=== PATIENT | male | born 1945 | race Caucasian/White ===

== ENCOUNTER 2016-10-21 02:25 | Emergency (ER) | payer MEDICARE, OTHER ==
--- NOTE | ~2016-10-21 | CN ---
Consultation Report [facility] [address] [place]. [address] NAME: KEO ZHONG JR : 41 STATUS : [facility] PAT#: [id number] AGE: 71 ADM/REG DATE : 10/21/16 MR#: [id number] REPORT SERV DATE: 10/21/16 DICTATED BY: LUCILLE CARBAJAL DATE: 10/21/16 REPORT STATUS : Draft TRANSCRIBED BY: MODL DATE: 10/21/16 CONSULTATION DATE OF CONSULTATION: 10/21/2016 REASON FOR CONSULTATION: Urinary retention and urinary tract infection. HISTORY OF PRESENT ILLNESS: Mr. Zhong is a 71-year-old male with a history of urinary incontinence following a transurethral resection of the prostate. This was managed with an artificial urinary sphincter that was placed in 2006. He has been using this since then without any complications. However, recently, he describes difficulty using the device and "having to really prime it to get it to work." He additionally has a history of urinary retention, which was treated with an InterStim placement at [place]. It is unclear the etiology of his urinary retention. Regardless, the InterStim did not work. He presented to the ER tonight with abdominal pain and dysuria. He was found to have urinary retention. The ER staff was given instructions on how to deactivate the sphincter, the sphincter was deactivated and a small catheter was placed into his bladder, draining clear urine. The urinalysis was concerning for infection. He has no fevers or chills. He has no nausea or vomiting. He does not describe any sort of erythema or pain of his genitalia. He has not had any hematuria. I have been asked to consult regarding these findings. PAST MEDICAL HISTORY: Notable for COPD, on oxygen; obstructive sleep apnea, on CPAP; morbid obesity; coronary artery disease; diabetes; congestive heart failure; chronic kidney disease; hypertension; depression; history of GERD; TIAs; urinary incontinence. PAST SURGICAL HISTORY: Cholecystectomy, TURP, artificial urinary sphincter placement, InterStim placement. FAMILY HISTORY: Heart disease. ALLERGIES: LISINOPRIL, TAPE, LATEX, BEES. MEDICATIONS: Reviewed and listed in the chart. SOCIAL HISTORY: He does not smoke, drink, or use illegal drugs. He is accompanied by his family. REVIEW OF SYSTEMS: A 12-point review of systems was performed. Pertinent positives are listed in the HPI. PHYSICAL EXAMINATION: VITAL SIGNS: Temperature is 98.1, pulse is in the 80s, blood pressure is 161/64, saturating 96% on 2 L nasal cannula. GENERAL: He is in no acute distress. He appears his stated age. Consultation Report [facility] [address] [place]. [address] NAME: KEO ZHONG JR : 41 STATUS : DEP PAT#: [id number] AGE: 71 ADM/REG DATE : 10/21/16 MR#: [id number] REPORT SERV DATE: 10/21/16 DICTATED BY: LUCILLE CARBAJAL DATE: 10/21/16 REPORT STATUS : Draft TRANSCRIBED BY: MODFarida DATE: 10/21/16 HEENT: Head is normocephalic and atraumatic, and he has poor dentition. HEART: Regular rate and rhythm. LUNGS: His breathing is nonlabored. He is not in respiratory distress. He is wearing oxygen. ABDOMEN: Soft, nontender, nondistended. He has no CVA tenderness. : He has some penile and scrotal edema; however, there is no erythema. The artificial urinary sphincter pump is palpated deep in his scrotum, this is not a very ideal location. There is no cellulitis. There is no purulent drainage. A Huynh catheter is in place. The cuff does not appear to be deactivated. EXTREMITIES: There is mild edema. There is no cyanosis. NEUROLOGIC: He is alert and oriented x3. IMAGING: There is no imaging. LABORATORY DATA: White count 12.1, hemoglobin is 10.8. Creatinine is 1.36, which is his baseline. Urinalysis is concerning for infection. ASSESSMENT: 1. History of urinary retention, status post artificial urinary sphincter placement. 2. Urinary retention. 3. Urinary tract infection. PLAN: Mr. Zhong has a complex urologic history with his lower urinary tract. He has urinary incontinence after a TURP. This was managed with artificial urinary sphincter. He had an InterStim placed for presumably nonobstructive urinary retention. However, his appearance appears to be more obstructive than anything. It is not a surprise that this has not worked. Additionally, his artificial urinary sphincter is not in a very ideal location for using, he has struggled with using it in the past. I palpated this device and deactivated it in the ER today. I locked the device in the deactivated position. A Huynh catheter is in place and is draining clear urine. I do not have any suspicion for a cuff erosion at this point. I will send him home on antibiotics. I will see him back on Sunday. Ultimately, he is going to need to have his device explanted as it is not usable and more mischievous resulting in urinary retention and will eventually result in a serious situation of erosion and infection. He may be best served with an SP tube at this time. My office will call him on Sunday. DAYANA/LUCIANA Lucille Carbajal MD / [id number] Consultation Report [address] [address] NAME: KEO ZHONG JR : 41 STATUS : [facility] PAT#: [id number] AGE: 71 ADM/REG DATE : 10/21/16 MR#: [id number] REPORT SERV DATE: 10/21/16 DICTATED BY: LUCILLE CARBAJAL DATE: 10/21/16 REPORT STATUS : Draft TRANSCRIBED BY: LUCIANA DATE: 10/21/16 CC: Lucille Carbajal MD
--- NOTE | ~2016-10-21 | HP ---
History And Physical [place] [id number] [facility] [place]. [address] NAME: KEO ZHONG JR : 41 STATUS : ADM Jeannie PAT#: [id number] AGE: 71 ADM/REG DATE : 10/21/16 MR#: [id number] REPORT SERV DATE: 10/21/16 DICTATED BY: TRAVIS MITTAL DATE: 10/21/16 REPORT STATUS : Draft TRANSCRIBED BY: MODL DATE: 10/21/16 DATE OF ADMISSION: 10/21/2016 CHIEF COMPLAINT: Urinary retention and dysuria. HISTORY OF PRESENT ILLNESS: This is a 71-year-old gentleman with history of coronary artery disease, morbid obesity, COPD, diabetes amongst many other medical conditions as well as urinary incontinence on a bladder control device presenting with urinary retention and dysuria. The patient reports that since about 2 days ago patient started having trouble urinating. The patient had significant dysuria and along with that the patient developed quite a bit of nausea. The patient did not have any fevers or chills but after two days of difficulty urinating patient decided to come to the ER for further evaluation and care. In the ER, the patient was found to be afebrile and hemodynamically stable. Initial lab evaluation was fairly benign. Creatinine was 1.36, BUN 36, white blood cell count of 12.1. Urinalysis was positive for urinary tract infection. The patient's bladder control device was disabled and Huynh catheter was introduced. With that, the patient had quite a bit of relief. The patient was then to be discharged home but family objected because they were concerns about taking care of him at home. Internal Medicine Consultation was thus requested for admission of patient for further evaluation and care. REVIEW OF SYSTEMS: The patient denies any fevers or chills. Also, 14-point review of systems reviewed and negative other than mentioned above. MEDICATIONS: 1. Neurontin 100 mg p.o. daily. 2. Neurontin 200 mg p.o. at bedtime. 3. MicroK 10 mEq p.o. b.i.d. 4. Zocor 20 mg p.o. at bedtime. 5. Metformin 1000 mg p.o. b.i.d. 6. Aspirin 325 mg p.o. daily. 7. Norvasc 5 mg p.o. daily. 8. Ativan 1 mg p.o. three times daily. 9. Cozaar 50 mg p.o. daily. 10.Imdur 30 mg p.o. b.i.d. 11.Celexa 20 mg p.o. at bedtime. 12.Pepcid 20 mg p.o. b.i.d. 13.Demadex 20 mg p.o. daily. 14.Coreg 6.25 mg two tabs p.o. b.i.d. 15.Symbicort two puffs inhaled twice daily. 16.ProAir two puffs inhaled q.6 hours p.r.n. 17.DuoNeb one nebulizer inhaled four times daily p.r.n. 18.Lantus 38 units subcu b.i.d. 19.Humalog per sliding scale 3 times daily. 20.Requip 1 mg p.o. at bedtime. History And Physical [address] [address] NAME: KEO ZHONG JR : 41 STATUS : ADM [facility] PAT#: [id number] AGE: 71 ADM/REG DATE : 10/21/16 MR#: [id number] REPORT SERV DATE: 10/21/16 DICTATED BY: TRAVIS MITTAL DATE: 10/21/16 REPORT STATUS : Draft TRANSCRIBED BY: LUCIANA DATE: 10/21/16 21.Zaroxolyn 2.5 mg p.o. Mondays and Fridays. 22.Oxygen. 23.CPAP. ALLERGIES: 1. LISINOPRIL. 2. ADHESIVE TAPE. 3. LATEX. 4. VENOM OF HONEY BEE. PAST MEDICAL HISTORY: 1. Oxygen dependent COPD at 2 L. 2. Obstructive sleep apnea, on CPAP. 3. Morbid obesity. 4. Coronary artery disease. 5. Diabetes type 2. 6. Congestive heart failure, unknown type and ejection fraction. 7. Chronic kidney disease, unclear baseline. 8. Hypertension. 9. Depression. 10.GERD. 11.TIAs. 12.The patient apparently developed urinary incontinence after a prostate surgery and since then the patient has had a bladder control device that is implanted under his scrotum. PAST SURGICAL HISTORY: Cholecystectomy. FAMILY HISTORY: Heart diseases. SOCIAL HISTORY: The patient does not smoke, drink alcohol, or use any illicit drugs. The patient is at home with his and his daughter. The patient's daughter is at bedside here in the ER. PHYSICAL EXAMINATION: VITAL SIGNS: Temperature 98.1, blood pressure 161/64, pulse 80, respiratory rate is 20, and saturating 96% on room air. GENERAL: The patient is alert and oriented x3 with no focal neurologic deficits. The patient is awake, does not appear to be in acute distress, and he is cooperative. NECK: No JVD. No lymphadenopathy. Normal thyroid. CHEST: No midline sternotomy wound, and no tenderness to palpation. LUNGS: Clear to auscultation bilaterally with a normal respiratory effort on room air. CARDIOVASCULAR: Regular rate and rhythm with no murmurs, rubs, or gallops, and PMI is nondisplaced. ABDOMEN: Soft, nontender with active bowel sounds and no organomegaly. EXTREMITIES: No edema. Normal distal pulses. No calf tenderness. SKIN: Clean, dry, warm, and intact. History And Physical [address] [address] NAME: KEO ZHONG JR : 41 STATUS : ADM Jeannie PAT#: [id number] AGE: 71 ADM/REG DATE : 10/21/16 MR#: [id number] REPORT SERV DATE: 10/21/16 DICTATED BY: TRAVIS MITTAL DATE: 10/21/16 REPORT STATUS : Draft TRANSCRIBED BY: LUCIANA DATE: 10/21/16 LABORATORY DATA: Sodium is 141, potassium 3.9, chloride 104, BUN 36, creatinine 1.36, glucose 103, calcium 8.4. White blood cell count is 12.1, hemoglobin 10.8, platelets 269. Urinalysis showed a large leukocyte esterase, greater than 182 white blood cells, many white blood cell clumps but negative for nitrite. ASSESSMENT: This is a 71-year-old gentleman with history of urinary incontinence who is dependent on bladder control device presenting with urinary retention. 1. Urinary retention likely due to urinary tract infection, status post disabling of bladder control device and Huynh catheter insertion. 2. Morbid obesity. 3. Oxygen-dependent chronic obstructive pulmonary disease. 4. Question congestive heart failure, unknown type and ejection fraction. 5. Chronic kidney disease. 6. Diabetes type 2. 7. Hypertension. 8. Coronary artery disease. 9. Blindness. PLAN: My plan is to admit the patient under telemetry monitoring for observation overnight. I will for now continue the Huynh catheter and start the patient on empiric antibiotic therapy. The patient will also be given IV fluid resuscitation. I will follow up on urine cultures and check a procalcitonin level. I will also go ahead and put a Neurology consult as apparently patient is not supposed to be on a Huynh for a long time with the bladder control device disabled. Otherwise, despite his multiple comorbid conditions, the patient appears to be quite stable and for the rest of his stable past medical conditions, including COPD, diabetes, chronic kidney disease, hypertension, coronary artery disease, et al., I will continue home medications. Standard DVT prophylaxis. The patient is full code at this time. YSC/MODL Travis Mittal MD / [id number]
[~2016-10-21 02:25] MED LIST: ADVAIR250 INH; AMIT25 PO; ASA5GR PO; ASAB PO; ASABAYER PO; ATV1 PO; BACDS PO; BROVANA15 MCG INH; CELEXA20 PO; COREG12 PO; COREG3 PO; COREG6 PO; COZ50 PO; CYMBALTA60 PO; DEMA10T PO; DEMA20 PO; DUONEB INH; FLORASTOR250 MG PO; GLUCOPHAGE1000 MG PO; GLUCPH PO; HUMALOG SC; IMDUR30 PO; INSNOVR; INSNOVR SC; KDUR20 PO; KLOR-CON M2020 MEQ PO; L40 PO; L80 PO; LANTUS SC; MICARDIS40 PO; MICARDIS80 PO; MICRO-K10 MEQ PO; NEUR100 PO; NORV10 PO; NORV5 PO; P10 PO; PEP20 PO; PEPCID40 MG PO; PRIN10 PO; PROAIR HFA INH; PULRESP.25 INH; REFRESH OP; REFRESH OPH; REQUIP1 PO; SPIRO25 PO; SYMBICORT 160/41 INH INH; SYMBICORT 80/4.1 INH INH; SYSTANE OP; TEARS PURE OPH; VENTOLIN HFA INH; VIBRATAB100 MG PO; ZAROX2.5B PO; ZOCOR20 PO; [UNRECOGNIZED DRUG - OTHER]
[2016-10-21 03:23] LABS: BASOPHILS 0.3 %; BASOPHILS ABSOLUTE 0.04 10/3/uL (0.0-0.16); EOSINOPHILS 1.2 %; EOSINOPHILS ABSOLUTE 0.14 10/3/uL (0.0-0.53); ER CBC TAT 0 Hrs 00 Mins; HEMATOCRIT 33.4 % (40.0-51.0); HEMOGLOBIN 10.8 g/dL (13.6-17.8); IMMATURE GRANULOCYTES 0.3 %; IMMATURE GRANULOCYTES ABSOLUTE 0.04 10/3/uL (0.0-0.11); LYMPHOCYTES 14.2 %; LYMPHOCYTES ABSOLUTE 1.72 10/3/uL (0.67-4.30); MEAN CORPUS HGB CONC 32.3 g/dL (32.0-36.0); MEAN CORPUSCULAR HEMOGLOB 30.7 pg (26.0-34.0); MEAN CORPUSCULAR VOLUME 94.9 fL (80-100); MEAN PLATELET VOLUME 8.8 fL (9.2-13.0); MONOCYTES 9.7 %; MONOCYTES ABSOLUTE 1.17 10/3/uL (0.21-1.20); NEUTROPHILS 74.3 %; NEUTROPHILS ABSOLUTE 9.01 10/3/uL (2.02-8.40); PLATELET COUNT 269 10/3/uL (150-400); RBC DISTRIBUTION WIDTH 14.6 % (12.0-16.0); RED CELL COUNT 3.52 10/6/uL (4.7-6.1)
[2016-10-21 03:26] LABS: MANUAL DIFF NO %; WHITE BLOOD CELLS 12.1 10/3/uL (4.5-10.5)
[2016-10-21 03:34] LABS: CALCIUM, SERUM 8.4 MG/DL (8.5-10.4); CHLORIDE, SERUM 104 MMOL/L (96-112); CO2 (CARBON DIOXIDE) 30 MMOL/L (24-34); CREATININE 1.36 MG/DL (0.70-1.30); GFR AFRICAN AMERICAN 59 ML/MIN (>=60); GFR NON AFRICAN AMERICAN 51 ML/MIN (>=60); GLUCOSE, SERUM 103 MG/DL (60-99); POTASSIUM, SERUM 3.9 MMOL/L (3.5-5.3); SODIUM, SERUM 141 MMOL/L (135-148)
[2016-10-21 03:35] LABS: BUN (BLOOD UREA NITROGEN) 36 MG/DL (6-23)
[2016-10-21 03:44] LABS: ASCORBIC ACID (UR NOT ORDER) NEG (NEG); BILIRUBIN, URINE NEGATIVE (NEG); ER URINALYSIS TAT 0 Hrs 00 Mins; KETONE, URINE NEGATIVE (NEG); LEUKOCYTE ESTERASE(NOT OR LARGE (NEG); NITRITE (URINE) NEG (NEG)
[2016-10-21 03:46] LABS: WBC (NOT ORDERED) (RFLEX) > 182 (0-5)
[2016-10-21] MEDS ORDERED: ZAROX2.5B PO (04:36)
[2016-10-21] MEDS ORDERED: CPAP INH (04:42)
[2016-10-21] MEDS ORDERED: OXYGEN INH (04:42)
[2016-10-25] MEDS ORDERED: CIP5 PO (18:12)
[2017-02-08] MEDS ORDERED: LANTUSCART SC (11:24)
[2017-02-13] MEDS ORDERED: FERROUS SULF325 M1 PO (15:31)
== END 2016-10-21 11:15 | disposition home or self-care (01) ==
LOC: ER 02:25
PROVIDERS: Specialist
PROC: 0T9B70Z Drainage of Bladder with Drainage Device, Via Natural or Artificial Opening (ICD-10-PCS; principal; 2016-10-21)
DX: R33.9 Retention of urine, unspecified (principal); N39.0 Urinary tract infection, site not specified; I10 Essential (primary) hypertension; E11.9 Type 2 diabetes mellitus without complications; Z86.72 Personal history of thrombophlebitis; Z88.8 Allergy status to other drugs, medicaments and biological substances; Z91.038 Other insect allergy status; Z91.040 Latex allergy status; Z91.09 Other allergy status, other than to drugs and biological substances; Z79.82 Long term (current) use of aspirin; Z79.899 Other long term (current) drug therapy
CPT/HCPCS: 80048; 81001; 82962; 85025; 87086; 96374; 99284

== ENCOUNTER 2016-11-01 14:12 | Observation (INO) | payer MEDICARE, OTHER ==
--- NOTE | ~2016-11-01 | OP ---
Record Of Operation [facility] [address] [place]. [address] NAME: KEO ZHONG JR : 41 STATUS : ADM Jeannie PAT#: [id number] AGE: 71 ADM/REG DATE : 11/01/16 MR#: [id number] REPORT SERV DATE: 11/02/16 DICTATED BY: LUCILLE CARBAJAL DATE: 11/01/16 REPORT STATUS : Draft TRANSCRIBED BY: MODL DATE: 11/01/16 DATE OF PROCEDURE: 11/01/2016 SURGEON: Lucille Carbajal M.D. TITLE OF OPERATION: Explant of artificial urinary sphincter cuff with repair of urethral erosion. PREOPERATIVE DIAGNOSES: 1. Urinary retention. 2. Urethral erosion of artificial urinary sphincter. POSTOPERATIVE DIAGNOSES: 1. Urinary retention. 2. Urethral erosion of artificial urinary sphincter. INDICATIONS: Mr. Zhong is a 71-year-old male with a history of an artificial urinary sphincter placed many years ago. He presented to the ER last week with urinary retention and penile and scrotal pain. He had no evidence of an erosion at this time. A catheter was placed into his bladder for drainage. He is having a hard time working with the pump. He is now here for explantation. ANESTHESIA: Spinal. COMPLICATIONS: None. IMPLANTS: A 16-Mosotho Huynh catheter. SPECIMENS: None. NARRATIVE: The patient was brought to the operating room, identified by his wristband. General anesthesia was induced and Ancef was given for preoperative antibiotics. He was placed in the dorsal lithotomy position and prepped and draped in sterile fashion. A perineal incision was made on the interface, was deepened through the subcutaneous tissues. The bulbous spongiosis muscle was identified and split in its midline. This was in the urethra. The urethra was mobilized from the central tendon up into the penile urethra where the cuff was found. The cuff was found to have completely eroded dorsally and eventually into the urethra. The cuff was removed. Urethra was reapproximated with interrupted 3-0 Vicryl suture. A 16-Mosotho Huynh catheter was placed with no difficulty. The wound was irrigated clear. The bulbous spongiosis muscle was reapproximated with interrupted 3-0 Vicryl suture. The dartos fascia was reapproximated with a running 3-0 Vicryl suture. Skin was closed with 4-0 chromic suture in a running fashion. A Xeroform gauze and tape dressing were placed. I tentatively placed a suprapubic tube with aid of a spinal needle. This was found to be quite difficult given the patient's body habitus. I elected to abort this portion of the procedure and just leave him with a Huynh catheter. With the use of SP tube, we can do this under CT guidance with interventional radiologist. The patient was awoken Record Of Operation [address] [address] NAME: KEO ZHONG JR : 41 STATUS : ADM Jeannie PAT#: [id number] AGE: 71 ADM/REG DATE : 11/01/16 MR#: [id number] REPORT SERV DATE: 11/02/16 DICTATED BY: LUCILLE CARBAJAL DATE: 11/01/16 REPORT STATUS : Draft TRANSCRIBED BY: LUCIANA DATE: 11/01/16 from anesthesia and transferred to the recovery room in stable condition. There were no complications. I will plan on sending him home tomorrow with a catheter for two weeks. DAYANA/LUCIANA Lucille Carbajal MD / [id number] CC: MD JEY Hartman
--- NOTE | ~2016-11-01 | CN ---
Consultation Report [facility] [address] [place]. [address] NAME: KEO ZHONG YEMI SQUIRES : 41 STATUS : ADM Jeannie PAT#: [id number] AGE: 71 ADM/REG DATE : 11/01/16 MR#: [id number] REPORT SERV DATE: 11/02/16 DICTATED BY: ROSCOEGEETA BLANCO DATE: 11/02/16 REPORT STATUS : Draft TRANSCRIBED BY: MODL DATE: 11/02/16 CONSULTATION DATE OF CONSULTATION: 11/01/2016 REASON FOR CONSULTATION: Consulted for diabetes management. IDENTIFYING DATA: 1. PCP Brie Hernandez, nurse practitioner at [facility]. 2. Cardroom Hand Viky Rivero M.D. 3. Vascular surgeon López Reis M.D. Ja. 4. Quality Control Tester Dr. Scottie Rankin. 5. Urologist, Adrian Carbajal M.D. HISTORY OF PRESENT ILLNESS: This is a 71-year-old, male, who presents to Dr. Adrian Carbajal with urinary retention and dysuria. He is status post artificial urinary sphincter removal, cystoscopy, insertion of Huynh catheter on 11/01/2016. This gentleman has a history of coronary artery disease, morbid obesity, COPD, diabetes, TIAs, obstructive sleep apnea, chronic kidney disease to name a few medical conditions as well as urinary incontinence and has been on a bladder control device previously presenting with urinary retention and dysuria. Status post surgical procedure, we have been consulted to help manage the patient's blood sugars. The patient's history was obtained through interview with the patient, his family, and coupled with review of [employer]. PAST MEDICAL HISTORY: 1. Diabetic neuropathy. 2. TIA. 3. Blindness. 4. Dysphagia. 5. Diabetes type 2 for approximately 30 years. 6. Depression and anxiety. 7. Urinary retention. 8. Sinusitis. 9. Cataracts. 10.CHF in 2004. 11.Hypertension. 12.COPD. 13.Sleep apnea. 14.Melanoma. 15.CKD. 16.CPAP use at 3 L at h.s. 17.O2 at 2 L per nasal cannula during the day. Consultation Report [facility] [address] [place]. [address] NAME: ZHONGKEO JR : 41 STATUS : ADM Jeannie PAT#: [id number] AGE: 71 ADM/REG DATE : 11/01/16 MR#: [id number] REPORT SERV DATE: 11/02/16 DICTATED BY: GEETA MALHOTRA DATE: 11/02/16 REPORT STATUS : Draft TRANSCRIBED BY: LUCIANA DATE: 11/02/16 18.Arthritis. 19.GERD. 20.Abdominal hernia. 21.Diabetic foot wounds. 22.Contracture of the 3rd finger. 23.Morbid obesity. 24.Chronic urinary incontinence. 25.Hypercholesterolemia. 26.Chronic lower extremity edema. HOME MEDICATION: 1. DuoNeb one nebulizer inhalation 4 times a day p.r.n. for shortness of breath. 2. ProAir HFA 2 puffs inhalation every 6 hours p.r.n. 3. Norvasc 5 mg p.o. every morning. 4. Artificial Tears p.r.n. as needed. 5. Aspirin 325 mg p.o. daily. 6. Symbicort 160/4.5 inhaler two puffs inhalation twice a day. 7. Coreg 12.5 mg p.o. twice a day. 8. Cipro 500 mg p.o. every 12 hours. 9. Celexa 20 mg p.o. at bedtime. 10.Pepcid 20 mg p.o. twice a day. 11.Neurontin 100 mg p.o. daily. 12.Neurontin 200 mg p.o. at bedtime. 13.Lantus insulin 38 units subcutaneous twice a day. 14.Humalog per sliding scale at home. 15.Imdur 30 mg p.o. twice a day. 16.Ativan 1 mg p.o. three times daily. 17.Cozaar 50 mg p.o. every morning. 18.Glucophage 1000 mg p.o. twice a day. 19.Zaroxolyn 2.5 mg tab p.o. on Sunday and Sunday p.m. 20.Potassium chloride 10 mEq p.o. twice a day. 21.Requip 1 mg p.o. at bedtime. 22.Zocor 20 mg p.o. at bedtime. 23.Demadex 20 mg p.o. daily. 24.Oxygen at 2 L per nasal cannula during the day. 25.CPAP at 3 L of oxygen at bedtime. ALLERGIES: 1. LISINOPRIL. 2. ADHESIVE. 3. LATEX. 4. BEE VENOM. SOCIAL HISTORY: The patient is , approximately 54 years. He was a previous smoker, quit in 1961. He is sedentary, lives in a single-level home. Does use a walker Consultation Report [facility] [id number] [place]. [address] NAME: KEO ZHONG JR : 41 STATUS : ADM Jeannie PAT#: [id number] AGE: 71 ADM/REG DATE : 11/01/16 MR#: [id number] REPORT SERV DATE: 11/02/16 DICTATED BY: GEETA MALHOTRA DATE: 11/02/16 REPORT STATUS : Draft TRANSCRIBED BY: LUCIANA DATE: 11/02/16 occasionally. No alcohol or illicit drug use. FAMILY HISTORY: There is a positive history of coronary artery disease. The patient had two sisters, one brother who were diabetic, one sister is still living. Mother is 90 years old plus still living, has COPD. Father is at age 5757 years old, had COPD. SURGICAL HISTORY: 1. Intra-ocular lens implant bilaterally. 2. Laser eye surgery. 3. Right hand crush injury in 2004. 4. Bladder/ureteral surgery in January 2014. 5. EGD with dilatation. 6. Left lower extremity arteriogram September 2016. 7. Bladder control device implanted under scrotum. 8. Prostatectomy. 9. Laparoscopic cholecystectomy 03/29/2016. REVIEW OF SYSTEMS: Review of systems are negative other than what is included with HPI. The patient has no shortness of breath. No chest pain. No fever. No abdominal pain. No nausea, vomiting, displays no confusion or agitation. PHYSICAL EXAMINATION: VITAL SIGNS: From today blood pressure 183/79, heart rate 73, respiratory rate 20, temperature 97.7, O2 saturation 97% on 2 L nasal cannula. GENERAL: This is an obese male, 71 years old, sitting up on side of bed, in no acute distress. Very talkative. NEURO: His head is atraumatic. He is normocephalic. He is alert and oriented x3. His mood is pleasant and appropriate. He is blind but he states that he can see shadows. NECK: Supple. Trachea is midline. No JVD noted. No obvious thyromegaly or lymphadenopathy. HEENT: Sclerae are nonicteric. Pupils are equal, reactive to light. Nares are patent. Mucous membranes are moist. Tongue is midline without deviation. Soft palate rises equally on phonation. CHEST: No tenderness to palpation. LUNGS: Diminished in the bases. A few crackles noted to left lower lobe. Normal respiratory effort. No increased work of breathing with conversation on continuous O2 sats with O2 saturation at 97% presently. CARDIOVASCULAR: S1, S2, on telemetry has a regular rhythm sinus rhythm, borderline first degree heart block at rate of 83. ABDOMEN: Obese, soft, nontender, with active bowel sounds. No palpable organomegaly. Last bowel movement noted was 10/31/2016. EXTREMITIES: Distal pulses are diminished. No calf tenderness. No edema. He has ordered bilateral TEDs and SCDs. SKIN: Warm and dry. No rashes. Normal color and turgor. He does have wounds to lower Consultation Report [address] [place]. [address] NAME: TREVINKEO YEMI SQUIRES : 41 STATUS : ADM Jeannie PAT#: [id number] AGE: 71 ADM/REG DATE : 11/01/16 MR#: [id number] REPORT SERV DATE: 11/02/16 DICTATED BY: GEETA MALHOTRA DATE: 11/02/16 REPORT STATUS : Draft TRANSCRIBED BY: LUCIANA DATE: 11/02/16 extremities in which some scabbing is noted. PSYCH: The patient is pleasant, cooperative, appropriate mood and affect. : Status post procedure, the patient has a Huynh catheter in place draining yellow urine. LABORATORY DATA: Obtained from 10/21/2016; sodium was 141, potassium 3.9, chloride 104, CO2 of 30, BUN 36, creatinine 1.36, GFR 51. Glucose 103, calcium 8.4. White blood cell 12.1, hemoglobin 10.8, hematocrit 33.4, platelets 269. Blood sugars obtained are 294, 257, and presently 254. On 10/26/2016, the patient had an EKG that showed sinus rhythm with a first degree AV block with a rate of 77. In 2015, an echo was done that showed an EF of 50% with moderate diastolic dysfunction, mild LVH which was due to hypertension. ASSESSMENT AND PLAN: 1. Diabetes type 2. The patient has been diabetic for approximately 30 years. He has blindness and only see shadows. He states his checks his blood sugars which are normally checked b.i.d. His average blood sugars ranged from 100-150 normally he states. We will have a visual educator see him regarding monitoring and diet and place him on an 1800 ADA cardiac diet, initiate a sliding scale insulin level 2. We will check a fingerstick blood sugar at 1 a.m. For now, the patient is not eating. We will hold his Lantus which he normally gets twice a day. If there are no other procedures in the a.m., his Lantus will need to be reordered. We will also obtain a hemoglobin A1c today in the a.m. labs. 2. Chronic obstructive pulmonary disease. The patient has a history of obstructive sleep apnea. Aware. He is on O2 continuously during the day at 2 L nasal cannula. At night, he does use CPAP at 3 L for sleep. We will continue his home O2 and his CPAP at h.s. We will have continuous O2 saturation monitoring. We will continue his home nebulizer and p.r.n. treatments. 3. Hypertension. Aware. The patient does have a history in the past of CHF. We will place the patient on telemetry and continue his home medications of Norvasc, Coreg, Cozaar, Imdur. We will decrease his IV fluid to KVO. His aspirin will be on hold. For now, we will initiate hydralazine p.r.n. 10 mg IV q.6h. for systolic blood pressure greater than 165. 4. Gastroesophageal reflux disease. Aware. We will continue patient's home Pepcid. 5. Diabetic neuropathy. Aware. We will continue patient's Neurontin and Requip. 6. Hypercholesterolemia. Aware. We will continue patient's home dose of Zocor. 7. Labs in a.m.; BMP, CBC, magnesium, phosphorus, BNP, portable chest x-ray, and hemoglobin A1c. The hospitalist group would like to thank you for this consultation and please let us know if we can be of further assistance. FERNANDO Geeta Malhotra NP Consultation Report [facility] [address] [place] [address] [address]. [facility] [address] NAME: KEO ZHONG : 41 STATUS : ADM Jeannie PAT#: [id number] AGE: 71 ADM/REG DATE : 11/01/16 MR#: [id number] REPORT SERV DATE: 11/02/16 DICTATED BY: GEETA MALHOTRA DATE: 11/02/16 REPORT STATUS : Draft TRANSCRIBED BY: MODL DATE: 11/02/16 / [id number] CC: MD Brie Hartman
[~2016-11-01 14:12] MED LIST changes: +CIP5 PO; +CPAP INH; +OXYGEN INH
[2016-11-02 06:18] LABS: BASOPHILS 0.3 %; BASOPHILS ABSOLUTE 0.04 10/3/uL (0.0-0.16); EOSINOPHILS 0.8 %; EOSINOPHILS ABSOLUTE 0.12 10/3/uL (0.0-0.53); HEMATOCRIT 32.9 % (40.0-51.0); HEMOGLOBIN 10.4 g/dL (13.6-17.8); IMMATURE GRANULOCYTES 0.2 %; IMMATURE GRANULOCYTES ABSOLUTE 0.03 10/3/uL (0.0-0.11); LYMPHOCYTES 8.4 %; LYMPHOCYTES ABSOLUTE 1.32 10/3/uL (0.67-4.30); MEAN CORPUS HGB CONC 31.6 g/dL (32.0-36.0); MEAN CORPUSCULAR HEMOGLOB 29.5 pg (26.0-34.0); MEAN CORPUSCULAR VOLUME 93.2 fL (80-100); MEAN PLATELET VOLUME 9.7 fL (9.2-13.0); MONOCYTES 8.2 %; MONOCYTES ABSOLUTE 1.28 10/3/uL (0.21-1.20); NEUTROPHILS 82.1 %; PLATELET COUNT 275 10/3/uL (150-400); RBC DISTRIBUTION WIDTH 14.4 % (12.0-16.0); RED CELL COUNT 3.53 10/6/uL (4.7-6.1); WHITE BLOOD CELLS 15.7 10/3/uL (4.5-10.5)
[2016-11-02 06:23] LABS: MANUAL DIFF NO %
[2016-11-02 06:32] LABS: CALCIUM, SERUM 8.2 MG/DL (8.5-10.4); CHLORIDE, SERUM 99 MMOL/L (96-112); CO2 (CARBON DIOXIDE) 27 MMOL/L (24-34); GFR AFRICAN AMERICAN 77 ML/MIN (>=60); GFR NON AFRICAN AMERICAN 66 ML/MIN (>=60); PHOSPHORUS, SERUM 2.8 MG/DL (2.5-4.5); POTASSIUM, SERUM 4.2 MMOL/L (3.5-5.3); SODIUM, SERUM 137 MMOL/L (135-148)
[2016-11-02 06:34] LABS: BUN (BLOOD UREA NITROGEN) 17 MG/DL (6-23); GLUCOSE, SERUM 305 MG/DL (60-99)
[2016-11-02 06:39] LABS: B NATRIURETIC PEPTIDE (BNP) 86.1 PG/ML (< 100.0)
[2016-11-02 07:51] LABS: GLYCOHEMOGLOBIN (HbA1c) 7.5 % (4.7-6.1)
[2016-11-02] MEDS ORDERED: PCET PO (16:19)
[2016-11-02] MEDS ORDERED: BACDS PO (16:20)
[2017-02-08] MEDS ORDERED: LANTUSCART SC (11:24)
[2017-02-13] MEDS ORDERED: FERROUS SULF325 M1 PO (15:31)
== END 2016-11-02 18:14 | disposition home or self-care (01) ==
LOC: SDC 14:12 → 4SO 19:16
PROVIDERS: Nurse Practitioner Family; Urology
PROC: 0TJDXZZ Inspection of Urethra, External Approach (ICD-10-PCS; principal; 2016-11-01 15:45)
DX: T83.191A Other mechanical complication of implanted urinary sphincter, initial encounter (principal); R33.9 Retention of urine, unspecified; N36.8 Other specified disorders of urethra; I25.10 Atherosclerotic heart disease of native coronary artery without angina pectoris; E66.01 Morbid (severe) obesity due to excess calories; J44.9 Chronic obstructive pulmonary disease, unspecified; G47.33 Obstructive sleep apnea (adult) (pediatric); N18.9 Chronic kidney disease, unspecified; Z86.73 Personal history of transient ischemic attack (TIA), and cerebral infarction without residual deficits; E11.40 Type 2 diabetes mellitus with diabetic neuropathy, unspecified; E11.22 Type 2 diabetes mellitus with diabetic chronic kidney disease; F32.9 Major depressive disorder, single episode, unspecified; F41.9 Anxiety disorder, unspecified; I50.9 Heart failure, unspecified; I11.0 Hypertensive heart disease with heart failure; M19.90 Unspecified osteoarthritis, unspecified site; K21.9 Gastro-esophageal reflux disease without esophagitis; I73.9 Peripheral vascular disease, unspecified; E78.00 Pure hypercholesterolemia, unspecified; Z79.899 Other long term (current) drug therapy; Z79.82 Long term (current) use of aspirin; Z79.4 Long term (current) use of insulin; Z91.040 Latex allergy status; Z88.8 Allergy status to other drugs, medicaments and biological substances; Z87.891 Personal history of nicotine dependence; Z98.890 Other specified postprocedural states
CPT/HCPCS: 36415; 71010; 80048; 82962; 83036; 83735; 83880; 84100; 85025; 86850; 86900; 86901; 88300; 93005; 94640; 96372; 96374; 96376; A9270-GY; G0378; J0360; J0690; J1580; J2250; J3010; Q9967